=== PATIENT | female | born 1930 | race Two or more races ===

== ENCOUNTER 2016-04-04 23:05 | Emergency (ER) | payer MEDICARE, OTHER ==
[2016-04-04] MEDS ORDERED: ASPIRIN 81 MG TABLET, CHEWABLE PO ONE (23:33)
[2016-04-04 23:53] LABS: ABSOLUTE BASOPHILS # (AUTO) 0.1 10^3/uL (0.0-0.2); ABSOLUTE EOSINOPHILS # (AUTO) 0.3 10^3/uL (0.0-0.6); ABSOLUTE LYMPHOCYTES (AUTO) 2.9 10^3/uL (0.5-4.7); ABSOLUTE MONOCYTES (AUTO) 0.6 10^3/uL (0.1-1.4); ABSOLUTE NEUT (AUTO) 5.4 10^3/uL (1.7-8.2); BASOPHILS % (AUTO) 1.1 % (0-2); EOSINOPHILS % (AUTO) 3.4 % (0-6); HEMATOCRIT 45.6 % (36.0-47.0); HEMOGLOBIN 14.6 g/dL (12.0-15.5); HGB HCT DIFFERENCE -1.8; MEAN CORPUSCULAR HEMOGLOBIN 26.3 pg (27.0-33.4); MEAN CORPUSCULAR VOLUME 82 fl (80-97); MONOCYTES % (AUTO) 6.9 % (3-13); RED BLOOD COUNT 5.56 10^6/uL (3.72-5.28); RED CELL DISTRIBUTION WIDTH 13.6 % (11.5-14.0); SEGMENTED NEUTROPHILS % (AUTO) 57.6 % (42-78); WHITE BLOOD COUNT 9.4 10^3/uL (4.0-10.5)
[2016-04-05 00:13] LABS: ALANINE AMINOTRANSFERASE 34 U/L (9-52); ALBUMIN 4.8 g/dL (3.5-5.0); ALKALINE PHOSPHATASE 141 U/L (38-126); ANION GAP 15 (5-19); ASPARTATE AMINO TRANSFERASE 27 U/L (14-36); BILIRUBIN,TOTAL 0.6 mg/dL (0.2-1.3); BLOOD UREA NITROGEN 17 mg/dL (7-20); CALCIUM 10.6 mg/dL (8.4-10.2); CARBON DIOXIDE 27 mmol/L (22-30); CHLORIDE 100 mmol/L (98-107); CREATINE KINASE 68 U/L (30-135); CREATININE RESULT 0.68 mg/dL (0.52-1.25); GLUCOSE 111 mg/dL (75-110); POTASSIUM 4.1 mmol/L (3.6-5.0); SODIUM 141.7 mmol/L (137-145)
[2016-04-05 00:24] LABS: CREATINE KINASE MB 1.33 ng/mL (<4.55); TROPONIN I 0.017 ng/mL
--- NOTE | 2016-04-05 01:51 | ER Document Report ---
ED Cardiac - General Chief Complaint: Chest Pain Stated Complaint: CHEST PAIN/POSSIBLE ACID REFLUX Time seen by provider: 01:47 Mode of Arrival: Ambulatory Information source: Patient TRAVEL OUTSIDE OF THE [place] IN LAST 30 DAYS: No - HPI Patient complains to provider of: Chest pain, Other - Abdominal Is the pain a: New problem Quality of pain: None Severity now: None Severity at worst: Moderate Chest pain precipitating factors: At Rest Cardiac risk factors: Hypertension, Dyslipidemia, Hx TN Positive cardiac history: Yes Associated symptoms: Abdominal pain Exacerbated by: Denies Relieved by: Nothing Similar symptoms previously: Yes Recently seen / treated by doctor: No Notes: Patient is an 85-year-old female who is visiting her daughter in the area from [place], presents to the emergency room complaining of upper abdominal pain with belching, sensation of indigestion that started earlier in the day after lunch, states she took 2 Tums and felt much better, but then developed some pain radiating up into the chest, which has continued throughout the evening, she denies any shortness of breath or diaphoresis, no nausea, vomiting or diarrhea, reports a sensation of a knot in her chest, patient has a history of TN in the past with four coronary artery stents, and stents in her lower extremities, also has a history of hypertension and hypercholesterolemia, so she came to the emergency room for evaluation, at present time she denies any chest pain but reports a sensation of a knot in her chest - Related Data Allergies/Adverse Reactions: No Known Allergies Allergy (Unverified 04/05/16 03:47) Past Medical History - General Information source: Patient - Social History Smoking Status: Never Smoker Chew tobacco use (# tins/day): No Frequency of alcohol use: None Drug Abuse: None Family History: Reviewed & Not Pertinent Patient has suicidal ideation: No Patient has homicidal ideation: No - Past Medical History Cardiac Medical History: Reports: Hx Heart Attack Renal/ Medical History: Denies: Hx Peritoneal Dialysis Review of Systems - Review of Systems Constitutional: No symptoms reported EENT: No symptoms reported Cardiovascular: Chest pain Respiratory: No symptoms reported Gastrointestinal: See HPI Genitourinary: No symptoms reported Female Genitourinary: No symptoms reported Musculoskeletal: No symptoms reported Skin: No symptoms reported Hematologic/Lymphatic: No symptoms reported Neurological/Psychological: No symptoms reported -: Yes All other systems reviewed and negative Physical Exam - Vital signs Vitals: Temp Pulse Resp BP Pulse Ox 97.8 F 79 18 174/67 H 97 04/04/16 23:14 04/04/16 23:14 04/04/16 23:14 04/04/16 23:14 04/04/16 23:14 Interpretation: Hypertensive - General General appearance: Appears well, Alert - HEENT Head: Normocephalic, Atraumatic Eyes: Normal Pupils: PERRL - Respiratory Respiratory status: No respiratory distress Chest status: Nontender Breath sounds: Normal Chest palpation: Normal - Cardiovascular Rhythm: Regular Heart sounds: Normal auscultation Murmur: No - Abdominal Inspection: Normal Distension: No distension Bowel sounds: Normal Tenderness: Nontender Organomegaly: No organomegaly - Back Back: Normal, Nontender - Extremities General upper extremity: Normal inspection, Nontender, Normal color, Normal ROM , Normal temperature General lower extremity: Normal inspection, Nontender, Normal color, Normal ROM , Normal temperature, Normal weight bearing. No: Anusha's sign - Neurological Neuro grossly intact: Yes Cognition: Normal Orientation: AAOx4 [place] Coma Scale Eye Opening: Spontaneous [place] Coma Scale Verbal: Oriented [place] Coma Scale Motor: Obeys Commands [place] Coma Scale Total: 15 Speech: Normal Motor strength normal: LUE, RUE, LLE, RLE Sensory: Normal - Psychological Associated symptoms: Normal affect, Normal mood - Skin Skin Temperature: Warm Skin Moisture: Dry Skin Color: Normal Course - Re-evaluation Re-evalutation: 04/05/16 04:16 Patient resting comfortably, no pain at present time, vital signs are stable, repeat troponin is now elevated and positive, therefore patient will require transfer to tertiary care center with interventional cardiology program I placed a call to [facility], spoke with Christin the transfer center , she will have the hospitalist call back 04/05/16 05:21 A call was placed to the transfer center at [facility] , spoke with Hina, will have physician call me back 04/05/16 05:41 Patient was discussed with internal medicine resident at [facility], Dr. Sandhu, who accepts patient to the service on behalf of her attending Dr. Pena, phone was transferred to patient's nurse to give report, currently there are no beds available and patient will be added to a waiting list for transfer when a bed becomes available 04/05/16 06:00 Patient was discussed with Dr. Lopez at [facility], hospitalist, who also accepts patient for transfer, she will also be added to a waiting list for this hospital as there are currently no beds available 04/05/16 06:41 patient was discussed with Dr Dillon who will continue to monitor until transfer - Vital Signs Vital signs: Temp Pulse Resp BP Pulse Ox 97.8 F 79 16 164/69 H 98 04/04/16 23:14 04/04/16 23:14 04/05/16 05:00 04/05/16 05:00 04/05/16 05:00 - Laboratory Result Diagrams: 04/04/16 23:41 04/04/16 23:41 Laboratory results interpreted by me: 04/04/16 04/04/16 23:41 23:41 RBC 5.56 H MCH 26.3 L Glucose 111 H Calcium 10.6 H Alkaline Phosphatase 141 H - Diagnostic Test Radiology reviewed: Image reviewed, Reports reviewed - EKG Interpretation by Me EKG shows normal: Sinus rhythm Rate: Normal Rhythm: NSR Voltage: Consistant with LVH Additional EKG results interpreted by me: 04/05/16 05:21 Repeat EKG sinus rhythm at a rate of 70, no ST elevations Discharge - Discharge Clinical Impression: NSTEMI (non-ST elevated myocardial infarction) Chest pain Qualifiers: Chest pain type: unspecified Qualified Code(s): R07.9 - Chest pain, unspecified Condition: Stable Disposition: [facility]
[2016-04-05 04:05] LABS: CREATINE KINASE MB 3.07 ng/mL (<4.55)
[2016-04-05 04:09] LABS: TROPONIN I 0.228 ng/mL
[2016-04-05 08:12] VITALS: BP 141/62
--- NOTE | 2016-04-05 08:22 | ER Document Report ---
Doctor's Note Notes: 04/05/16 08:21 Transport is here to take the patient to the [facility]. She is comfortable at this time. Her vital signs are stable. There are no complaints.
--- NOTE | 2016-04-05 15:18 | EKG REPORT ---
SEVERITY:- ABNORMAL ECG - SINUS RHYTHM PROBABLE LEFT VENTRICULAR HYPERTROPHY BORDERLINE T ABNORMALITIES, INFERIOR LEADS : Confirmed by: Corina Linares MD 05-Apr-2016 15:17:17
--- NOTE | 2016-04-05 15:18 | EKG REPORT ---
SEVERITY:- ABNORMAL ECG - SINUS RHYTHM PROBABLE LEFT VENTRICULAR HYPERTROPHY BORDERLINE PROLONGED QT INTERVAL : Confirmed by: Corina Linares MD 05-Apr-2016 15:17:10
== END 2016-04-05 08:35 | disposition short-term general hospital (02) ==
LOC: ER 23:05
DX: I21.4 Non-ST elevation (NSTEMI) myocardial infarction (principal); R07.9 Chest pain, unspecified; R10.13 Epigastric pain; I25.2 Old myocardial infarction
CPT/HCPCS: 93005 ×2; 99285; 36415; 82553; 82550; 85025; 80053; 84484; 71010; 93010 ×2; A9270